=== PATIENT | male | born 1985 | race Caucasian/White ===

== ENCOUNTER 2021-12-08 14:58 | Emergency (ER) | payer OTHER, SELFPAY ==
[2021-12-08] MEDS ORDERED: Lidocaine 1% (PF) 30 ML VIAL ONE (15:19)
[2021-12-08] MEDS ORDERED: Sulfameth/Trimethoprim DS 800-160mg TAB ONE (15:43)
[2021-12-08] MEDS ORDERED: HYDROcodone/Acetaminophen 10/325 mg Tablet ONE (15:43)
[2021-12-08] MEDS ORDERED: Boostrix 0.5 ML (Tdap) VIAL (>/=7 yrs of age) ONE ×2 (15:54→15:59)
== END 2021-12-08 16:39 | disposition home or self-care (01) ==
LOC: NAV ERS 14:58
DX: L02.31 Cutaneous abscess of buttock (principal); F17.210 Nicotine dependence, cigarettes, uncomplicated
CPT/HCPCS: 10060; 87070; 87077; 87186; 87205; 90471; 90715; J2001

== ENCOUNTER 2021-12-10 15:19 | Emergency (ER) | payer SELFPAY | END 2021-12-10 17:00 | disposition home or self-care (01) | LOC: NAV ERS 15:19 | DX: Z48.817 Encounter for surgical aftercare following surgery on the skin and subcutaneous tissue (principal); F17.210 Nicotine dependence, cigarettes, uncomplicated | CPT/HCPCS: 99282 ==

== ENCOUNTER 2023-08-13 11:09 | Emergency (ER) | payer SELFPAY ==
[2023-08-13] MEDS ORDERED: Dextrose 5 %-0.45 % NaCl 1,000 ML ONE (12:44)
[2023-08-13 13:01] LABS: #Basophils 0.1 thou/uL (0.0-0.2); #Eosinphils 0.2 thou/uL (0.0-0.7); #Lymphocytes 2.4 thou/uL (1.20-3.40); #Monocytes 1.1 thou/uL (0.11-0.59); #Neutrophils 6.1 thou/uL (1.40-6.50); %Basophils 0.8 % (0.0-1.0); %Eosinophils 1.6 % (0.0-10.0); %Lymphocytes 24.4 % (21.0-51.0); %Monocytes 10.8 % (0.0-10.0); %Neutrophils 62.4 % (42.0-75.0); Hematocrit 43.7 % (42.0-52.0); Hemoglobin 13.5 g/dL (14.0-18.0); Mean Corpuscular HGB CONC 30.9 g/dL (32.0-36.0); Mean Corpuscular Hemoglobin 26.1 pg (27.0-31.0); Mean Corpuscular Volume 84.4 fl (78.0-98.0); Mean Platelet Volume 5.8 fL (7.4-10.4); Platelet Count 218 10x3/uL (130-400); RBC Distribution Width 12.5 % (11.5-14.5); Red Blood Cell (RBC) Count 5.18 mill/uL (4.70-6.10); White Blood Cell (WBC) Count 9.8 10x3/uL (4.8-10.8)
[2023-08-13 13:18] LABS: ALT (SGPT) 55 U/L (8-55); AST (SGOT) 46 U/L (5-34); Albumin 4.4 g/dL (3.5-5.0); Alkaline Phosphatase 63 U/L (40-110); Anion Gap 15 mmol/L (10-20); BUN (Urea Nitrogen) 14 mg/dL (8.9-20.6); Bilirubin, Total 1.2 mg/dL (0.2-1.2); Calc. Creatinine Clearance 0 mL/min (70-130); Calcium 9.4 mg/dL (7.8-10.44); Carbon Dioxide 27 mmol/L (22-29); Chloride 101 mmol/L (98-107); Estimated GFR 114; Globulin 3.8 g/dL (2.4-3.5); Glucose 110 mg/dL (70-105); Lipase 10 U/L (8-78); Potassium 3.6 mmol/L (3.5-5.1); Protein, Total 8.2 g/dL (6.0-8.3); Sodium 139 mmol/L (136-145)
[2023-08-13 13:20] LABS: Acetaminophen Less than 10 mcg/mL (10.0-30.0); Alcohol Less than 10.0 mg/dL (Less than 10); Salicylate Less than 8.0 mg/dL (15.0-30.0)
== END 2023-08-13 15:49 | disposition home or self-care (01) ==
LOC: NAV ERS 11:09
DX: R41.82 Altered mental status, unspecified (principal); E16.2 Hypoglycemia, unspecified; F17.210 Nicotine dependence, cigarettes, uncomplicated
CPT/HCPCS: 36416; 80053; 80307; 83690; 84443; 85025; 99284; 36415-59; J7042